=== PATIENT | male | born 1955 | race Hispanic/Latino ===

== ENCOUNTER 2017-07-15 08:50 | Emergency (ER) | payer SELFPAY ==
[2017-07-15] MEDS ORDERED: MOTRIN400 MG PO (10:00)
[2017-07-15] MEDS ORDERED: TYLENOL500 MG PO (10:00)
[2017-07-15] MEDS ORDERED: PROTONIX40 M4 PO (10:00)
[2017-07-15 10:10] VITALS: BP 138/77
== END 2017-07-15 10:10 | disposition home or self-care (01) | DRG 556 ==
LOC: ED 08:50
DX: M25.561 Pain in right knee (principal); M17.11 Unilateral primary osteoarthritis, right knee

== ENCOUNTER 2019-04-28 11:37 | Inpatient (IN) | payer MEDICAID ==
[~2019-04-28] VITALS: Ht 172.7 cm; Wt 83.7 kg
[~2019-04-28 11:37] MED LIST: MOTRIN400 MG PO; PROTONIX40 M4 PO; TYLENOL500 MG PO
--- NOTE | 2019-04-28 12:15 | NUR ---
PATIENT TO ROOM VIA WHEELCHAIR.
--- NOTE | 2019-04-28 12:30 | NUR ---
PATIENT HAS ACTIVE BOWEL SOUNDS, TENDERNESS NOTED WHEN HICKMAN OF STETHOSCOPE PLACED OVER RLQ FOR AUSCULATION OF BOWEL SOUNDS. PATIENT PREVIOUSLY SEEN GUARDING RLQ DURING AMBULATION.
[2019-04-28 13:03] LABS: GFR > 60 ML/MIN (>=60 (CALC)); GFR FOR AFR.AMER. > 60 ML/MIN (>=60 (CALC))
[2019-04-28 13:04] LABS: HEMATOCRIT 43.3 % (39.0-50.0); HEMOGLOBIN 14.6 g/dl (14.0-18.0); IMMATURE GRANULOCYTES 0.6 % (0.0-5.0); MEAN CELL VOLUME 95.6 fL CALC (80.0-100.0); MEAN CORPUSCULAR HGB 32.2 pG CALC (26.0-32.0); MEAN CORPUSCULAR HGB CONC 33.7 g/L CALC (32.0-36.0); NEUT# 11.38 thou/uL (1.82-7.42); RED BLOOD COUNT 4.53 mill/uL (4.70-6.10); RED CELL DISTRI WIDTH 12.6 % (11.5-15.5)
--- NOTE | 2019-04-28 13:35 | NUR ---
PATIENT MEDICATED PER MD ORDER.
[2019-04-28 13:39] LABS: ALBUMIN 3.9 g/dL (3.2-5.0); ALKALINE PHOSPHATASE 65 u/l (38-126); ANION GAP 19 (6-22 (CALC)); BILIRUBIN, TOTAL 0.6 mg/dL (0.0-1.4); BUN 20 mg/dL (8-23); BUN/CREATININE RATIO 21 (12-20 (CALC)); CARBON DIOXIDE 24 mmol/l (22-30); CHLORIDE 94 mmol/l (95-108); CREATININE 0.9 mg/dL (0.7-1.3); GFR > 60 ML/MIN (>=60 (CALC)); GFR FOR AFR.AMER. > 60 ML/MIN (>=60 (CALC)); LIPASE 77 u/l (23-300); SGOT/AST 44 u/l (19-48); SODIUM 133 mmol/l (137-146); TOTAL PROTEIN 7.4 g/dL (6.3-8.2)
--- NOTE | 2019-04-28 14:10 | NUR ---
PATIENT REPORTS NO MEDICAL HISTORY AND NOT TAKING ANY MEDS. STATES HAVING NO PAIN AT REST. INCREASED PAIN WHEN MOVING. TEMP 99.6.
--- NOTE | 2019-04-28 14:20 | NUR ---
AT BEDSIDE TO DISCUSS RESULTS AND POSSIBLE SX.
--- NOTE | 2019-04-28 14:48 | NUR ---
sbar printed to floor
--- NOTE | 2019-04-28 15:20 | NUR ---
PATIENT INFORMED OF NPO STATUS AT THIS TIME, VERBAL UNDERSTANDING.
--- NOTE | 2019-04-28 15:30 | NUR ---
PATIENT RESTING ON STRETCHER. DENIES NEED OF PAIN MEDICATION. WILL CONTINUE TO MONITOR.
--- NOTE | 2019-04-28 15:58 | NUR ---
CALL PLACED TO JAZMIN ZAVALA FOR ORDERS.
--- NOTE | 2019-04-28 16:43 | NUR ---
ATTEMPT MADE TO CALL REPORT. SPOKE TO ZANE. WILL HAVE NURSE CALL BACK.
--- NOTE | 2019-04-28 17:11 | NUR ---
SEND ATTEMPT MADE TO CALL REPORT, SPOKE TO ZANE. NURSE NOT AVAILABLE. WILL CALL BACK.
--- NOTE | 2019-04-28 18:02 | NUR ---
REPORT CALLED TO CEM HAQ.
--- NOTE | 2019-04-28 18:10 | NUR ---
PATIENT TRANSPORTED TO [facility] VIA WHEELCHAIR WITH IV FLUIDS TO CONTINUE INFUSING. EUN PRIEST AWARE OF PATIENT ARRIVAL TO UNIT.
[2019-04-28 18:17] VITALS: BP 158/95
--- NOTE | 2019-04-28 19:15 | NUR ---
PT ARRIVED TO THE FLOOR VIA STRETCHER, PT AMBULATED FROM STRETCHER TO BED. PT ALERT AND ORIENTED. REPSIRATIONS EVEN AND UNLABORED ON RA. WHEEZES NOTED IN LUNGS. PEDAL PULSES STRONG. PT ORIENTED TO ROOM AND CALL HICKMAN SYSTEM. SAFETY PRECAUTIONS IN PLACE. WILL CONTINUE TO MONITOR.
--- NOTE | 2019-04-28 23:54 | NUR ---
PT RESTING IN BED. RESPIRATIONS EVEN AND UNLABORED ON RA. NO S/S OF DISTRESS AT THIS TIME. WILL CONTINUE TO MONITOR.
--- NOTE | 2019-04-29 03:26 | NUR ---
ADULT FAMILY HOME PROGRAM MANAGER IN TO DRAW SPECIMEN; PT DENIES PAIN OR DISCOMFORT; IVF INFUSING WITHOUT DIFFICULTY; CALL HICKMAN WITHIN REACH; WILL CONTINUE TO MONITOR.
[2019-04-29 03:37] VITALS: BP 154/82
[2019-04-29 04:21] LABS: HEMATOCRIT 38.1 % (39.0-50.0); HEMOGLOBIN 12.7 g/dl (14.0-18.0); IMMATURE GRANULOCYTES 0.7 % (0.0-5.0); MEAN CELL VOLUME 96.7 fL CALC (80.0-100.0); MEAN CORPUSCULAR HGB 32.2 pG CALC (26.0-32.0); MEAN CORPUSCULAR HGB CONC 33.3 g/L CALC (32.0-36.0); NEUT# 10.33 thou/uL (1.82-7.42); RED BLOOD COUNT 3.94 mill/uL (4.70-6.10); RED CELL DISTRI WIDTH 12.9 % (11.5-15.5)
[2019-04-29 05:00] LABS: ANION GAP 15 (6-22 (CALC)); BUN 14 mg/dL (8-23); BUN/CREATININE RATIO 17 (12-20 (CALC)); CARBON DIOXIDE 25 mmol/l (22-30); CHLORIDE 98 mmol/l (95-108); CREATININE 0.8 mg/dL (0.7-1.3); GFR > 60 ML/MIN (>=60 (CALC)); GFR FOR AFR.AMER. > 60 ML/MIN (>=60 (CALC)); POTASSIUM 4.1 mmol/l (3.5-5.1); SODIUM 134 mmol/l (137-146)
--- NOTE | 2019-04-29 06:44 | NUR ---
PT IS RELAXING IN BED WITH NO DISTRESS NOTED.IV SITE IS FREE FROM REDNESS OR EDEMA.
--- NOTE | 2019-04-29 13:15 | NUR ---
PT was having severe tremors. Temp 101. Dr Edward was present at bedside. Pt stated that the last time he drink alcohol was 4 days ago. 1mg Ativan given as ordered. EKG AND ABG done. Will continue to monitor.
[2019-04-29 16:00] VITALS: BP 144/80
--- NOTE | 2019-04-29 16:40 | NUR ---
Temp 103. Confused and agitated, refused to stay in bed. HAND II TUBE BENDER was notified. HOMERO Drain in place with brown drainage. Safety measures in place. Will continue to monitor.
--- NOTE | 2019-04-29 19:10 | NUR ---
REPORT RECEIVED PT NOTED RESTING IN BED. NO APPARENT DISTRESS NOTED. PT WAKES EASILY TO VERBAL STIMULI. HOMERO DRAIN IN PLACE WITH BROWN COLORED OUTPUT. PT DENIES ANY PAIN OR DISCOMFORT. AFEBRILE AT THIS TIME. PT REMAINS NPO. IV FLUIDS INFUSING WITHOUT DIFFICULTY. CALL LIGHT WITHIN REACH. WILL CONTINUE TO MONITOR.
[2019-04-29 19:27] VITALS: BP 119/77
--- NOTE | 2019-04-29 23:12 | NUR ---
PT RESTING IN BED WITH EYES CLOSED. NO APPARENT DISTRESS NOTED. HOMERO DRAIN IN PLACE, SMALL AMOUNT OF BROWN CLOUDY OUTPUT NOTED. WILL CONTINUE TO MONITOR.
[2019-04-29 23:35] VITALS: BP 118/70
[2019-04-30 02:18] LABS: URINE BLOOD DIPSTICK SMALL (NEGATIVE); URINE COLOR YELLOW; URINE GLUCOSE - DIPSTICK NEGATIVE (NEGATIVE); URINE KETONE 15 mg/dL (NEGATIVE); URINE NITRITE - DIPSTICK NEGATIVE (Negative); URINE PROTEIN - DIPSTICK 30 mg/dL (NEG-TRACE); URINE SPECIFIC GRAVITY >=1.030; URINE UROBILINOGEN - DIPSTICK 0.2 E.U./dL (0.2)
[2019-04-30 02:27] LABS: URINE BILIRUBIN - DIPSTICK SMALL (NEGATIVE)
[2019-04-30 02:29] LABS: URINE LEUK ESTERASE NEGATIVE (NEGATIVE)
[2019-04-30 02:30] LABS: URINE EPITHELIAL CELLS FEW EPI/hpf (0-FEW)
[2019-04-30 02:31] LABS: URINE BACTERIA FEW hpf; URINE MUCUS FEW hpf (NONE-FEW)
--- NOTE | 2019-04-30 03:20 | NUR ---
PT RESTING IN BED WITH EYES CLOSED. NO APPARENT DISTRESS NOTED. CALL LIGHT WITHIN REACH. WILL CONTINUE TO MONITOR.
[2019-04-30 04:06] VITALS: BP 119/71
[2019-04-30 06:26] LABS: HEMATOCRIT 36.4 % (39.0-50.0); HEMOGLOBIN 12.2 g/dl (14.0-18.0); IMMATURE GRANULOCYTES 0.6 % (0.0-5.0); MEAN CELL VOLUME 96.6 fL CALC (80.0-100.0); MEAN CORPUSCULAR HGB 32.4 pG CALC (26.0-32.0); MEAN CORPUSCULAR HGB CONC 33.5 g/L CALC (32.0-36.0); NEUT# 14.3 thou/uL (1.82-7.42); RED BLOOD COUNT 3.77 mill/uL (4.70-6.10); RED CELL DISTRI WIDTH 13.2 % (11.5-15.5)
[2019-04-30 06:50] LABS: ANION GAP 14 (6-22 (CALC)); BUN 12 mg/dL (8-23); BUN/CREATININE RATIO 17 (12-20 (CALC)); CARBON DIOXIDE 23 mmol/l (22-30); CHLORIDE 103 mmol/l (95-108); CREATININE 0.7 mg/dL (0.7-1.3); GFR > 60 ML/MIN (>=60 (CALC)); GFR FOR AFR.AMER. > 60 ML/MIN (>=60 (CALC)); POTASSIUM 3.7 mmol/l (3.5-5.1); SODIUM 135 mmol/l (137-146)
[2019-04-30 08:00] VITALS: BP 122/75
--- NOTE | 2019-04-30 08:36 | NUR ---
ASSESSMENT DONE. PT IS A&O X3. PT STATED PAIN IN ABD. MEDICATED PT WITH TYLENOL AND PO FLUIDS PROVIDED. IVF INFUSING WELL. PT DENIES ANY NEEDS AT THIS TIME. HOMERO IN PLACE WITH DRESSING. SAFETY PRECAUTIONS REINFORCED AND CALL LIGHT IN REACH. BED ALARM IN PLACE.
[2019-04-30 11:00] VITALS: BP 120/73
--- NOTE | 2019-04-30 12:00 | NUR ---
SET UP PT FOR LUNCH. PT STATED HE WILL EAT LATER. PT STATED SOME PAIN IN ABD BUT REFUSED PAIN MEDICATION AT THIS TIME. PT DENIES ANY NEEDS AT THIS TIME. CALL LIGHT IN REACH.
[2019-04-30 14:54] VITALS: BP 133/79
--- NOTE | 2019-04-30 15:37 | NUR ---
PT IS RESTING IN BED WITH NO S/S OF DISTRESS NOTED. APPLE JUICE PROVIDED. PT DENIES ANY OTHER NEEDS AT THIS TIME. CALL LIGHT IN REACH.
[2019-04-30 18:54] VITALS: BP 146/84
--- NOTE | 2019-04-30 19:19 | NUR ---
REPORT FROM DANYELL HAQ. PT RESTING IN BED. ALERT AND ORIENTED. PT STATES " LITTLE BIT OF PAIN" REFUSED PAIN MEDICATION. LOW GRADE TEMP NOTED 99.1, AIR TURNED DOWN IN ROOM, WILL REASSESS AND CONTINUE TO MONITOR. IV SITE APPEARS HEALTHY. HOMERO DRAIN NOTED TO RLQ NO DRAINAGE NOTED IN BULB AT THIS TIME. DISCUSSED POC. PT VERBALIZED UNDERSTANDING. CALL LIGHT WITHIN REACH. WILL CONTINUE TO MONITOR.
--- NOTE | 2019-04-30 23:15 | NUR ---
PT RESTING IN BED WITH EYES CLOSED. WAKES EASILY TO VERBAL STIMULI. NO APPARENT DISTRESS NOTED. DENIES ANY PAIN OR DISCOMFORT. CALL LIGHT WITHIN REACH. WILL CONTINUE TO MONITOR.
[2019-05-01 02:40] VITALS: BP 163/87
--- NOTE | 2019-05-01 03:53 | NUR ---
PT RESTING IN BED WITH EYES CLOSED. NO APPARENT DISTRESS NOTED. DENIES ANY PAIN OR DISCOMFORT. CALL LIGHT WITHIN REACH. WILL CONTINUE TO MONITOR.
[2019-05-01 05:46] LABS: HEMATOCRIT 36.9 % (39.0-50.0); HEMOGLOBIN 12.2 g/dl (14.0-18.0); IMMATURE GRANULOCYTES 0.8 % (0.0-5.0); MEAN CELL VOLUME 97.1 fL CALC (80.0-100.0); MEAN CORPUSCULAR HGB 32.1 pG CALC (26.0-32.0); MEAN CORPUSCULAR HGB CONC 33.1 g/L CALC (32.0-36.0); NEUT# 6.76 thou/uL (1.82-7.42); RED BLOOD COUNT 3.8 mill/uL (4.70-6.10); RED CELL DISTRI WIDTH 13.2 % (11.5-15.5)
[2019-05-01 05:58] LABS: ANION GAP 14 (6-22 (CALC)); BUN 10 mg/dL (8-23); BUN/CREATININE RATIO 14 (12-20 (CALC)); CARBON DIOXIDE 21 mmol/l (22-30); CHLORIDE 105 mmol/l (95-108); CREATININE 0.7 mg/dL (0.7-1.3); GFR > 60 ML/MIN (>=60 (CALC)); GFR FOR AFR.AMER. > 60 ML/MIN (>=60 (CALC)); POTASSIUM 3.8 mmol/l (3.5-5.1); SODIUM 137 mmol/l (137-146)
--- NOTE | 2019-05-01 06:48 | NUR ---
EASTON RILEY AT BEDSIDE TO CHANGE DRESSING ON HOMERO DRAIN.
[2019-05-01 08:00] VITALS: BP 157/84
--- NOTE | 2019-05-01 08:00 | NUR ---
PT SEEN AWAKE, ALERT, ORIENTED X 3, [place] ONLY. LUNGS DIMINISHED IN THE BASES, RA. HOMERO DRAIN NOTED TO RLQ, MINIMAL DRAINAGE. NO DISTRESS, NO COMPLAINTS.
--- NOTE | 2019-05-01 14:25 | NUR ---
PT RESTS IN THE BED, NO DISTRESS. DR REARDON HAS SEEN PT. PT ENCOURAGED TO BE UP AND AROUND ROOM MORE NOW THAT IV DISCONTINUED.
[2019-05-01 15:41] VITALS: BP 150/80
--- NOTE | 2019-05-01 18:15 | NUR ---
PT HEPLOCKED, AMBULATORY IN ROOM. NO DISTRESS, NO COMPLAINT OF PAIN.
[2019-05-01 18:35] VITALS: BP 161/85
--- NOTE | 2019-05-01 19:30 | NUR ---
PT RESTING IN BED WITH EYES CLOSED. WAKES EASILY TO STIMULI. ALERT AND ORIENTED. HOMERO DRAIN TO RLQ, FLUSHED PER ORDERS, 5ML MILKY BROWN OUTPUT EMPTIED. PT TOLERATED WELL. DISCUSSED POC. PT VERBALIZED UNDERSTANDING. IV SITE APPEARS HEALTHY. PT MEDICATED WITH PRN APAP FOR ABD PAIN 4-10. PT DENIES ANY OTHER WANTS OR NEEDS. CALL LIGHT WITHIN REACH. WILL CONTINUE TO MONITOR.
[2019-05-01 19:33] VITALS: BP 155/78
--- NOTE | 2019-05-01 23:02 | NUR ---
PT RESTING IN BED WITH EYES CLOSED. NO APPARENT DISTRESS NOTED. PT WAKES EASILY. DENIES ANY PAIN OR DISCOMFORT AT THIS TIME. NO CURRENT WANTS OR NEEDS. CALL LIGHT WITHIN REACH. WILL CONTINUE TO MONITOR.
--- NOTE | 2019-05-02 03:30 | NUR ---
PT RESTING IN BED WITH EYES CLOSED. NO APPARENT DISTRESS NOTED. CALL LIGHT WITHIN REACH. WILL CONTINUE TO MONITOR.
[2019-05-02 03:50] VITALS: BP 160/87
[2019-05-02 05:07] LABS: HEMATOCRIT 37.6 % (39.0-50.0); HEMOGLOBIN 12.3 g/dl (14.0-18.0); MEAN CELL VOLUME 96.9 fL CALC (80.0-100.0); MEAN CORPUSCULAR HGB 31.7 pG CALC (26.0-32.0); MEAN CORPUSCULAR HGB CONC 32.7 g/L CALC (32.0-36.0); RED BLOOD COUNT 3.88 mill/uL (4.70-6.10); RED CELL DISTRI WIDTH 13.2 % (11.5-15.5)
[2019-05-02 08:00] VITALS: BP 152/86
--- NOTE | 2019-05-02 09:43 | NUR ---
PT OOB AND IN SHOWER AT THIS TIME. PT IS ALERT AND ORIENTED X 3, AMBULATORY. HOMERO DRAIN SEEN TO EXIT FROM RLQ OF ABDOMEN, MINIMAL SEROSANGUINOUS DRAINAGE.
--- NOTE | 2019-05-02 13:28 | NUR ---
PT CONTINUES BEFORE, RESTING IN THE BED IN NO ACUTE DISTRESS.
[2019-05-02 15:41] VITALS: BP 156/84
--- NOTE | 2019-05-02 16:03 | NUR ---
PT CONTINUES BEFORE, SEEN BY DR HICKEY THIS AFTERNOON. PLAN IS TO HOPEFULLY PULL HOMERO SATURDAY.
[2019-05-02 18:27] VITALS: BP 136/73
--- NOTE | 2019-05-02 19:15 | NUR ---
PT RESTING IN BED WITH EYES CLOSED. WAKES EASILY TO STIMULI. ALERT AND ORIENTED. HOMERO DRAIN TO RLQ, FLUSHED PER ORDER, NO DRAINAGE NOTED AT THIS TIME. PT TOLERATED WELL. DISCUSSED POC. PT VERBALIZED UNDERSTANDING. IV SITE APPEARS HEALTHY. PT DENIES ANY CURRENT WANTS OR NEEDS. CALL LIGHT WITHIN REACH. WILL CONTINUE TO MONITOR.
--- NOTE | 2019-05-02 23:15 | NUR ---
PT RESTING IN BED WITH EYES CLOSED. NO APPARENT DISTRESS NOTED. PT WAKES EASILY. DENIES ANY PAIN OR DISCOMFORT. CALL LIGHT WITHIN REACH. WILL CONTINUE TO MONITOR.
[2019-05-03 03:18] VITALS: BP 149/81
--- NOTE | 2019-05-03 03:20 | NUR ---
PT RESTING IN BED WITH EYES CLOSED. NO APPARENT DISTRESS NOTED. CALL LIGHT WITHIN REACH. WILL CONTINUE TO MONITOR.
[2019-05-03 05:32] LABS: HEMATOCRIT 38.6 % (39.0-50.0); MEAN CELL VOLUME 95.5 fL CALC (80.0-100.0); MEAN CORPUSCULAR HGB 32.2 pG CALC (26.0-32.0); MEAN CORPUSCULAR HGB CONC 33.7 g/L CALC (32.0-36.0); RED BLOOD COUNT 4.04 mill/uL (4.70-6.10); RED CELL DISTRI WIDTH 13.2 % (11.5-15.5)
[2019-05-03 07:34] VITALS: BP 132/78
--- NOTE | 2019-05-03 09:04 | NUR ---
PT SEEN AWAKE, ALERT, SITTING UP IN BED IN DANGLING POSITION. NO COMPLAINT OF ABDOMINAL PAIN OR OTHERWISE. PT AWARE OF PENDING CT SCAN THIS MORNING.
--- NOTE | 2019-05-03 11:52 | NUR ---
PT AMBULATORY IN ROOM, NO COMPLAINTS HEARD. VISITOR AT BEDSIDE NOW.
[2019-05-03 15:25] VITALS: BP 144/85
--- NOTE | 2019-05-03 16:09 | NUR ---
PT WITHOUT CHANGE IN STATUS, STABLE BEFORE. PT UPDATED ON FINDINGS FROM CT SCAN.
[2019-05-03 19:00] VITALS: BP 134/71
--- NOTE | 2019-05-03 19:01 | NUR ---
REPORT FROM STEFFANIE HAQ. PT RESTING IN BED. NO APPARENT DISTRESS NOTED. PT DENIES ANY PAIN OR DISCOMFORT. HOMERO DRAIN INTACT, NO DRAINAGE NOTED. IV SITE APPEARS HEALTHY. DISCUSSED POC. PT VERBALIZED UNDERSTANDING. CALL LIGHT WITHIN REACH. WILL CONTINUE TO MONITOR.
--- NOTE | 2019-05-03 23:12 | NUR ---
PT RESTING IN BED WITH EYES CLOSED. NO APPARENT DISTRESS NOTED. CALL LIGHT WITHIN REACH. WILL CONTINUE TO MONITOR.
[2019-05-04 04:53] LABS: HEMATOCRIT 38.8 % (39.0-50.0); HEMOGLOBIN 12.6 g/dl (14.0-18.0); MEAN CORPUSCULAR HGB 31.5 pG CALC (26.0-32.0); MEAN CORPUSCULAR HGB CONC 32.5 g/L CALC (32.0-36.0); RED CELL DISTRI WIDTH 13.3 % (11.5-15.5)
[2019-05-04 04:58] VITALS: BP 160/87
--- NOTE | 2019-05-04 05:24 | NUR ---
PT RESTING IN BED WITH EYES CLOSED. NO APPARENT DISTRESS NOTED. HOMERO DRAIN IN PLACE, NO OUTPUT NOTED. WILL CONTINUE TO MONITOR.
[2019-05-04 07:31] VITALS: BP 151/91
--- NOTE | 2019-05-04 08:35 | NUR ---
ASSESSMENT DONE. PT IS A&O X3. PT STATED SOME PAIN BUT REFUSED PAIN MEDICATION AT THIS TIME. HOMERO IN PLACE. PT DENIES NEEDS AT THIS TIME. CALL LIGHT IN REACH. PT GOING DOWN TO X-RAY FOR LISBETH RILEY TO REMOVE HOMERO.
--- NOTE | 2019-05-04 12:00 | NUR ---
PT IS RESTING IN BED. PT DENIES PAIN AT THIS TIME OR NEEDS. SMALL DRESSING IN ABD CDI. CALL LIGHT IN REACH.
[2019-05-04] MEDS ORDERED: AMOX/K CLAV875 M1 PO (12:10)
[2019-05-04 15:15] VITALS: BP 146/87
--- NOTE | 2019-05-04 18:04 | NUR ---
Discharge instructions given. Patient verbalizes understanding of same. Discharged in stable condition via Wheelchair to Home with . All belongings sent with pt.
== END 2019-05-04 18:04 | disposition home or self-care (01) | DRG 372 ==
LOC: ED 11:37 → ED-I 14:39 → ED 14:54 → MS2 14:55
PROVIDERS: Family Medicine; Nurse Practitioner Family; ADMIT Internal Medicine; ATTEND Internal Medicine
PROC: 0W9G30Z Drainage of Peritoneal Cavity with Drainage Device, Percutaneous Approach (ICD-10-PCS; principal; 2019-04-29)
PROC: 0WPGX0Z Removal of Drainage Device from Peritoneal Cavity, External Approach (ICD-10-PCS; 2019-04-29)
DX: K35.33 Acute appendicitis with perforation, localized peritonitis, and gangrene, with abscess (principal); E87.1 Hypo-osmolality and hyponatremia; J43.9 Emphysema, unspecified; F10.10 Alcohol abuse, uncomplicated; F17.210 Nicotine dependence, cigarettes, uncomplicated; B96.20 Unspecified Escherichia coli [E. coli] as the cause of diseases classified elsewhere
CPT/HCPCS: J0131; J1650; J2060; Q9967; S0164

== ENCOUNTER 2019-06-04 | Day surgery (SDC) | payer MEDICAID ==
[2019-06-04] VITALS (8 sets, daily range): BP systolic 13–140; BP diastolic 66–81
[~2019-06-04] MED LIST changes: +AMOX/K CLAV875 M1 PO
[2019-06-05 04:00] VITALS: BP 149/96
[2019-06-05 09:07] VITALS: BP 147/77
== END 2019-06-05 10:56 | disposition home or self-care (01) | DRG 340 ==
PROC: 0DTJ4ZZ Resection of Appendix, Percutaneous Endoscopic Approach (ICD-10-PCS; principal; 2019-06-04)
DX: K35.33 Acute appendicitis with perforation, localized peritonitis, and gangrene, with abscess (principal)
CPT/HCPCS: J0131; J2710

== ENCOUNTER 2023-05-25 10:16 | Emergency (ER) | payer SELFPAY ==
[2023-05-25] VITALS (26 sets, daily range): BP systolic 134–190; BP diastolic 82–119
[~2023-05-25] VITALS: Ht 172.7 cm; Wt 81.0 kg
[2023-05-25 10:36] LABS: BASO% 0.6 % (0-3); EOS% 3.7 % (0-8); IMMATURE GRANULOCYTES 0.2 % (0.0-5.0); LYMPH% 36.2 % (15-41); MEAN CELL VOLUME 102.6 fL CALC (80.0-100.0); MEAN CORPUSCULAR HGB 32.7 pG CALC (26.0-32.0); MEAN CORPUSCULAR HGB CONC 31.8 g/dL CAL (32.0-36.0); MONO% 9.7 % (2-13); NEUT# 3.26 thou/uL (1.82-7.42); NEUT% 49.6 % (42-76); RED BLOOD COUNT 4.56 mill/uL (4.70-6.10); RED CELL DISTRI WIDTH 12.5 % (11.5-15.5)
[2023-05-25 10:41] LABS: HEMATOCRIT 46.8 % (39.0-50.0); HEMOGLOBIN 14.9 g/dl (14.0-18.0)
[2023-05-25 10:52] LABS: INTERNATIONAL NORMALIZED RATIO 1.1 RATIO (0.7-1.3); PROTHROMBIN TIME 10.4 SECONDS (9.0-12.5)
[2023-05-25 10:54] LABS: ALBUMIN 4.6 g/dL (3.2-5.0); ALKALINE PHOSPHATASE 45 u/l (38-126); BILIRUBIN, TOTAL 0.6 mg/dL (0.2-1.3); BUN 11 mg/dL (8-23); BUN/CREATININE RATIO 14 (12-20 (CALC)); CALCULATED LDLCHOLESTEROL 97 mg/dL (62-129 (CALC)); CHLORIDE 103 mmol/l (95-108); CHOLESTEROL HDL RATIO 3.3 (<4.4 (CALC)); CREATININE 0.8 mg/dL (0.7-1.3); GFR FOR AFR.AMER. > 60 ML/MIN (>=60 (CALC)); GFR OTHER RACES > 60 ML/MIN (>=60 (CALC)); HDL CHOLESTEROL 52 mg/dL (39.0-59.0); POTASSIUM 3.7 mmol/l (3.5-5.1); SGOT/AST 52 u/l (19-48); SODIUM 138 mmol/l (137-146); TOTAL CHOLESTEROL 170 mg/dl (0-199); TOTAL PROTEIN 7.7 g/dL (6.3-8.2); TOTAL TRIGLYCERIDES 107 mg/dl (0-149); VLDL CHOLESTROL 21 mg/dl (0-38 (CALC))
[2023-05-25 11:01] LABS: ANION GAP 12 (6-22 (CALC)); CARBON DIOXIDE 27 mmol/l (22-30)
[2023-05-25 12:28] LABS: URINE BILIRUBIN - DIPSTICK Negative (NEGATIVE); URINE BLOOD DIPSTICK Trace-intact (NEGATIVE); URINE COLOR Yellow; URINE GLUCOSE - DIPSTICK Negative (NEGATIVE); URINE KETONE Negative (NEGATIVE); URINE LEUK ESTERASE Negative (NEGATIVE); URINE NITRITE - DIPSTICK Negative (Negative); URINE PH 5.5 (4.5-8.0); URINE PROTEIN - DIPSTICK Negative (NEG-TRACE); URINE UROBILINOGEN - DIPSTICK 0.2 E.U./dL (0.2)
== END 2023-05-25 16:20 | disposition short-term general hospital (02) | DRG 64 ==
LOC: ED 10:16
PROVIDERS: Family Medicine
DX: I63.231 Cerebral infarction due to unspecified occlusion or stenosis of right carotid arteries (principal); Q28.3 Other malformations of cerebral vessels; H53.8 Other visual disturbances; R29.703 NIHSS score 3; F17.210 Nicotine dependence, cigarettes, uncomplicated; F17.290 Nicotine dependence, other tobacco product, uncomplicated
CPT/HCPCS: Q9967

== ENCOUNTER 2023-12-07 13:07 | Emergency (ER) | payer SELFPAY ==
[~2023-12-07] VITALS: Ht 172.7 cm; Wt 99.7 kg
[2023-12-07 13:37] LABS: BASO% 0.3 % (0-3); HEMATOCRIT 41.7 % (39.0-50.0); HEMOGLOBIN 13.8 g/dl (14.0-18.0); IMMATURE GRANULOCYTES 0.2 % (0.0-5.0); LYMPH% 34.4 % (15-41); MEAN CORPUSCULAR HGB 33.4 pG CALC (26.0-32.0); MEAN CORPUSCULAR HGB CONC 33.1 g/dL CAL (32.0-36.0); NEUT# 3.2 thou/uL (1.82-7.42); NEUT% 49.1 % (42-76); RED BLOOD COUNT 4.13 mill/uL (4.70-6.10); RED CELL DISTRI WIDTH 13.4 % (11.5-15.5)
[2023-12-07 13:48] LABS: ALBUMIN 4.2 g/dL (3.2-5.0); CREATININE 0.7 mg/dL (0.7-1.3); POTASSIUM 3.4 mmol/l (3.5-5.1); TOTAL PROTEIN 7.3 g/dL (6.3-8.2)
[2023-12-07 13:49] LABS: BILIRUBIN, TOTAL 0.3 mg/dL (0.2-1.3)
[2023-12-07 15:28] LABS: URINE BILIRUBIN - DIPSTICK Negative (NEGATIVE); URINE BLOOD DIPSTICK Negative (NEGATIVE); URINE COLOR Yellow; URINE GLUCOSE - DIPSTICK Negative (NEGATIVE); URINE KETONE Negative (NEGATIVE); URINE LEUK ESTERASE Negative (NEGATIVE); URINE NITRITE - DIPSTICK Negative (Negative); URINE PROTEIN - DIPSTICK Negative (NEG-TRACE); URINE SPECIFIC GRAVITY <=1.005; URINE UROBILINOGEN - DIPSTICK 0.2 E.U./dL (0.2)
[2023-12-07] MEDS ORDERED: ASPIRIN 81 MG/TAB PO ONE (15:50)
[2023-12-07] MEDS ORDERED: ENOXAPARIN SODIUM 100 MG/ML SYR SC ONE (15:50)
[2023-12-07 18:08] VITALS: BP 120/75
== END 2023-12-07 18:54 | disposition left against medical advice (07) | DRG 124 ==
LOC: ED 13:07
PROVIDERS: Family Medicine
DX: H53.8 Other visual disturbances (principal); I21.4 Non-ST elevation (NSTEMI) myocardial infarction; F10.129 Alcohol abuse with intoxication, unspecified; Y90.7 Blood alcohol level of 200-239 mg/100 ml; H26.9 Unspecified cataract; F17.200 Nicotine dependence, unspecified, uncomplicated; Z53.29 Procedure and treatment not carried out because of patient's decision for other reasons
CPT/HCPCS: J1650